=== PATIENT | male | born 1995 | race Caucasian/White ===

== ENCOUNTER 2017-12-09 11:31 | Emergency (ER) | payer OTHER ==
[2017-12-09 11:46] VITALS: BP 123/63
--- NOTE | 2017-12-09 11:52 | EDPHY ---
H & P Stated Complaint: says at work yest and hit in head with truck door, no loc, dizzy/tripathi/neck pa Time Seen by Provider: 12/09/17 11:51 - Medical/Surgical History Hx Asthma: No Hx Chronic Respiratory Disease: No Hx Diabetes: No Hx Cardiac Disease: No Hx Renal Disease: No Hx Cirrhosis: No Hx Alcoholism: No Hx HIV/AIDS: No Hx Splenectomy or Spleen Trauma: No Other PMH: multi concussions - 2nd impact syndrome - Social History Smoking Status: Never smoked Constitutional: Initial Vital Signs Temperature (C) 36.5 C 12/09/17 11:42 Heart Rate 61 12/09/17 11:42 Respiratory Rate 16 12/09/17 11:42 Blood Pressure 123/63 H 12/09/17 11:42 O2 Sat (%) 98 12/09/17 11:42 O2 Delivery Mode Room Air Allergies/Adverse Reactions: No Known Allergies Allergy (Unverified 12/09/17 11:46) Home Medications: Medication Instructions Recorded NK [No Known Home Meds] 12/09/17 Medical Decision Making ED Course/Re-evaluation: CHIEF COMPLAINT: Head injury HISTORY OF PRESENT ILLNESS: The patient is a 21 y/o male with a history of multiple concussions arriving with his friend for evaluation of a head injury sustained yesterday at work. He says, "I got shut in a truck door yesterday" as he was kneeling down and another person shut the door onto his head unintentionally. He remembers the entire event and denies loss of consciousness , nausea or vomiting, weakness or paresthesias, external trauma. He did feel mildly dizzy yesterday. His workman's comp wanted him evaluated in the ED. REVIEW OF SYSTEMS: A comprehensive 10 system review of systems is otherwise negative aside from elements mentioned in the history of present illness and medical decision making. PHYSICAL EXAM: HR, BP, O2 Sat, RR. Temp noted General Appearance: Alert, well hydrated, appropriate, and non-toxic appearing. Head: Atraumatic without scalp tenderness or obvious injury Eyes: Pupils equal, round, reactive to light and accommodation, EOMI, no trauma , no injection. Ears: Clear bilaterally, no perforation, normal landmarks Nose: Atraumatic, no rhinorrhea, clear. Throat: Mucus membranes moist. Neck: Supple, nontender, no lymphadenopathy. Respiratory: No retractions, no distress, no wheezes, and no accessory muscle use. Lungs are clear to auscultation bilaterally. Cardiovascular: Regular rate and rhythm, no murmurs, rubs, or gallops. Good capillary refill all extremities. Gastrointestinal: Abdomen is soft, nontender, non-distended, no masses, no rebound, no guarding, no peritoneal signs. Musculoskeletal: Normal active ROM of all extremities, atraumatic. Neurological: Alert, appropriate, and interactive. The patient has non-focal cranial nerves, motor, sensory, and cerebellar exam. Skin: No rashes, good turgor, no nodules on palpation. Past medical history: Multiple prior concussions Past surgical history: Denies Family history: Noncontributory Social history: Friend at bedside. Employed. DIFFERENTIAL DIAGNOSIS: The differential diagnosis for the patient's head injury included but was not limited to concussion, skull fracture, intra- parenchymal contusion, subarachnoid, subdural and epidural hematoma. MEDICAL DECISION MAKING: This is a 21 y/o male with a history of multiple prior concussions who presents at the recommendation of his workman's comp department for evaluation of a head injury sustained yesterday while at work. His exam is unremarkable. He is negative on [facility] CT rule set. No indications for imaging. Patient will be discharged home with standard head injury and post-concussion care and follow up instructions. Return precautions discussed. He is comfortable with this plan. Departure - Departure Disposition: Home, Routine, Self-Care Clinical Impression: Concussion Qualifiers: Encounter type: initial encounter Loss of consciousness presence/duration: without LOC Qualified Code(s): S06.0X0A - Concussion without loss of consciousness, initial encounter Condition: Good Instructions: Concussion (ED), Post Concussion Syndrome (ED) Additional Instructions: 1. Cognitive rest while symptoms are present. Avoid screen time including TV, phone, computer, video games. Slowly advance activity as tolerated. 2. Physical rest while symptoms are present. Avoid any activities (ex. contact sports, bicycling, etc.) that could lead to recurrent head injury in the next 1- 2 weeks or longer if symptoms persist. 3. Follow up with head injury specialist, Dr. Lombardo, if symptoms have not improved in 2 weeks. 4. Tylenol or ibuprofen as directed on the packaging as needed for pain. 5. Return to the ED for worsening of condition. Referrals: Ananya Lombardo MD [Medical Doctor] - As per Instructions Stand Alone Forms: Work Excuse Report Scribed for: Deni Nichols Report Scribed by: Lottie Avelar Date of Report: 12/09/17 Time of Report: 11:52
== END 2017-12-09 12:23 | disposition home or self-care (01) ==
DX: S06.0X0A Concussion without loss of consciousness, initial encounter (principal); W22.8XXA Striking against or struck by other objects, initial encounter; Y99.0 Civilian activity done for income or pay